=== PATIENT | female | born 1955 | race African-American/Black ===

== ENCOUNTER 2017-03-04 18:27 | Emergency (ER) | payer MEDICAID, MEDICARE, OTHER ==
[2017-03-04] MEDS ORDERED: Ondansetron ODT 4 MG TAB ONE ×2 (18:47→19:08)
[2017-03-04] MEDS ORDERED: AMOXicillin 250 MG CAP ONE (19:08)
== END 2017-03-04 19:14 | disposition home or self-care (01) ==
LOC: BURERS 18:27
DX: J20.9 Acute bronchitis, unspecified (principal); R11.2 Nausea with vomiting, unspecified; R19.7 Diarrhea, unspecified; E11.9 Type 2 diabetes mellitus without complications; G47.30 Sleep apnea, unspecified; E78.5 Hyperlipidemia, unspecified; I10 Essential (primary) hypertension; J45.909 Unspecified asthma, uncomplicated
CPT/HCPCS: 99283; Q0162

== ENCOUNTER 2017-05-23 17:15 | Emergency (ER) | payer MEDICARE ==
--- NOTE | 2017-05-23 21:33 | RAD ---
RIGHT FOOT THREE VIEWS: Date: 05-23-17 FINDINGS: No fracture or acute periosteal reaction was seen. There is a little periosteal irregularity of the s econd metatarsal shaft, but this is probably chronic. Some bony spurring is seen along the dorsum of some of the tarsal bones. A small calcaneal spur is present. There is dense ossification of the Achil les tendon at the insertion on the calcaneus. IMPRESSION: Chronic changes but no acute findings. POS: HOME
== END 2017-05-23 18:30 | disposition home or self-care (01) ==
LOC: BURERS 17:15
DX: M19.071 Primary osteoarthritis, right ankle and foot (principal); J06.9 Acute upper respiratory infection, unspecified; E11.9 Type 2 diabetes mellitus without complications; G47.30 Sleep apnea, unspecified; E78.5 Hyperlipidemia, unspecified; I10 Essential (primary) hypertension; J45.909 Unspecified asthma, uncomplicated

== ENCOUNTER 2017-10-21 19:52 | Emergency (ER) | payer MEDICARE ==
[2017-10-21 20:30] LABS: #Basophils 0.1 thou/uL (0.0-0.2); #Eosinphils 0.2 thou/uL (0.0-0.7); #Lymphocytes 3.5 thou/uL (1.20-3.40); #Monocytes 0.7 thou/uL (0.11-0.59); #Neutrophils 6.2 thou/uL (1.40-6.50); %Basophils 0.7 % (0.0-1.0); %Eosinophils 1.6 % (0.0-10.0); %Lymphocytes 32.9 % (21.0-51.0); %Monocytes 6.6 % (0.0-10.0); %Neutrophils 58.2 % (42.0-75.0); Hemoglobin 11.1 g/dL (12.0-16.0); Mean Corpuscular HGB CONC 36.1 g/dL (32.0-36.0); Mean Corpuscular Hemoglobin 28.7 pg (27.0-31.0); Mean Corpuscular Volume 79.6 fL (78.0-98.0); Mean Platelet Volume 5.6 fL (7.4-10.4); Platelet Count 195 thou/uL (130-400); Red Blood Cell (RBC) Count 3.86 mill/uL (4.20-5.40); White Blood Cell (WBC) Count 10.7 thou/uL (4.8-10.8)
[2017-10-21 20:47] LABS: ALT (SGPT) 12 U/L (8-55); AST (SGOT) 10 U/L (5-34); Albumin 4.4 g/dL (3.4-4.8); Alkaline Phosphatase 101 U/L (40-150); Anion Gap 16 mmol/L (10-20); BUN (Urea Nitrogen) 30 mg/dL (9.8-20.1); Bilirubin, Total 0.3 mg/dL (0.2-1.2); Calc. Creatinine Clearance 0 mL/min (70-130); Carbon Dioxide 27 mmol/L (23-31); Chloride 101 mmol/L (98-107); Estimated GFR-MDRD 30; Globulin 3.5 g/dL (2.4-3.5); Glucose 225 mg/dL (80-115); Protein, Total 7.9 g/dL (6.0-8.3); Sodium 140 mmol/L (136-145); Uric Acid 11.6 mg/dL (2.6-6.0)
[2017-10-21] MEDS ORDERED: HYDROcodone/Acetaminophen 5/325 mg Tablet ONE (21:01)
[2017-10-21] MEDS ORDERED: Amoxicillin/Potassium Clav 875 MG TAB ONE (21:01)
--- NOTE | 2017-10-21 22:22 | RAD ---
LEFT FOOT THREE VIEWS: 10/21/17 There is prominent soft tissue swelling, particularly on the dorsum of the forefoot. Nevertheless, n o underlying fractures were appreciated. The bony structures appear intact. Some arthritic changes cotto ggested in some of the intertarsal joints. There is dense bony ossification of the insertion of the A chilles tendon. A large calcaneal spur was seen and there is ossification of some of the attachments of the plantar muscles/fascia to the calcaneus. IMPRESSION: No acute bony changes. POS: HOME
== END 2017-10-21 21:22 | disposition home or self-care (01) ==
LOC: BURERS 19:52
DX: M10.9 Gout, unspecified (principal); L03.116 Cellulitis of left lower limb; E11.9 Type 2 diabetes mellitus without complications; E78.5 Hyperlipidemia, unspecified; I10 Essential (primary) hypertension; J45.909 Unspecified asthma, uncomplicated; G47.30 Sleep apnea, unspecified; Z85.6 Personal history of leukemia; Z79.899 Other long term (current) drug therapy
CPT/HCPCS: 36415; 80053; 84550; 85025

== ENCOUNTER 2017-12-11 00:02 | Emergency (ER) | payer MEDICARE ==
[2017-12-11] MEDS ORDERED: Morphine 10 MG/ML VIAL ONE (00:28)
[2017-12-11] MEDS ORDERED: Ibuprofen 200 MG TAB ONE (00:29)
[2017-12-11] MEDS ORDERED: Colchicine 0.6 MG TAB PO SCH ×2 (01:00→02:00)
== END 2017-12-11 01:18 | disposition home or self-care (01) ==
LOC: BURERS 00:02
DX: M19.072 Primary osteoarthritis, left ankle and foot (principal); M10.9 Gout, unspecified; E11.9 Type 2 diabetes mellitus without complications; G47.30 Sleep apnea, unspecified; E78.5 Hyperlipidemia, unspecified; I10 Essential (primary) hypertension; J45.909 Unspecified asthma, uncomplicated; Z79.899 Other long term (current) drug therapy
CPT/HCPCS: 96372; J2270

== ENCOUNTER → 2018-01-04 | Emergency (ER) | payer MEDICARE ==
[~2018-01-04] MED LIST: Fentanyl 100 MCG/2 ML VIAL ONE; Morphine 4 MG/ML Carpuject ONE; Ondansetron HCl/PF 4 MG/2 ML Vial ONE
[2018-01-04 08:56] LABS: #Basophils 0.1 thou/uL (0.0-0.2); #Eosinphils 0.1 thou/uL (0.0-0.7); #Lymphocytes 3.4 thou/uL (1.20-3.40); #Monocytes 0.5 thou/uL (0.11-0.59); %Basophils 0.9 % (0.0-1.0); %Eosinophils 0.6 % (0.0-10.0); %Lymphocytes 30.8 % (21.0-51.0); %Monocytes 4.5 % (0.0-10.0); %Neutrophils 63.3 % (42.0-75.0); Hemoglobin 11.3 g/dL (12.0-16.0); Mean Corpuscular HGB CONC 31.8 g/dL (32.0-36.0); Mean Corpuscular Hemoglobin 26.9 pg (27.0-31.0); Mean Corpuscular Volume 84.5 fL (78.0-98.0); Mean Platelet Volume 7.9 fL (7.4-10.4); Platelet Count 185 thou/uL (130-400); RBC Distribution Width 12.6 % (11.5-14.5); Red Blood Cell (RBC) Count 4.19 mill/uL (4.20-5.40)
[2018-01-04 09:11] LABS: ALT (SGPT) 17 U/L (8-55); AST (SGOT) 16 U/L (5-34); Albumin 4.3 g/dL (3.4-4.8); Alkaline Phosphatase 100 U/L (40-150); Anion Gap 13 mmol/L (10-20); BUN (Urea Nitrogen) 24 mg/dL (9.8-20.1); Bilirubin, Total 0.3 mg/dL (0.2-1.2); Calc. Creatinine Clearance 0 mL/min (70-130); Calcium 9.3 mg/dL (7.8-10.44); Carbon Dioxide 27 mmol/L (23-31); Chloride 105 mmol/L (98-107); Estimated GFR-MDRD 40; Globulin 3.2 g/dL (2.4-3.5); Glucose 174 mg/dL (80-115); Lipase 35 U/L (8-78); Potassium 4.2 mmol/L (3.5-5.1); Protein, Total 7.5 g/dL (6.0-8.3); Sodium 141 mmol/L (136-145)
[2018-01-04 09:12] LABS: CKMB 1.4 ng/mL (0-6.6); Troponin I Less than 0.010 ng/mL (< 0.028)
[2018-01-04 10:35] LABS: Bilirubin Negative (Negative); Blood, Urine Trace (Negative); Clarity Clear (Clear); Glucose, Urine (Dipstick) Negative (Negative); Leukocyte Negative (Negative); Nitrite Negative (Negative); Protein, Urine (Dipstick) Trace mg/dL (Neg-Trace); RBC/HPF None Seen HPF (0-3); Squamous Epithelial 0-3 HPF (0-3); Urobilinogen 0.2 mg/dL (0.2-1.0); WBC/HPF 0-3 HPF (0-3)
[2018-01-04 10:36] LABS: Bacteria/HPF 1+ HPF (None Seen); Crystals/HPF 1+ STARCH HPF (Negative)
--- NOTE | 2018-01-04 19:07 | CT ---
CT ABDOMEN AND PELVIS WITH CONTRAST: Date: 01-04-18 Comparison: 09-16-12 FINDINGS: Spiral CT of the abdomen and pelvis was performed for evaluation of abdominal pain with nausea and vo miting. The lung bases show some basilar atelectasis. The liver, spleen, gallbladder, pancreas, adrenal gland s, kidneys and abdominal aorta all show no acute findings. I would note that the amount of contrast g iven on this study was limited due to the patient's GFR. The major finding on this study is dilation of mid small bowel, up to 3 cm in width. The bowel prior to and after it are all normal in size. There is no colonic dilation. No inflammatory changes are see n around bowel. No free air free fluid was noted. Streaking is seen in the low midline abdominal soft tissues. Looking at a prior scan, there was a prior hernia repair here, so I am presuming that to be scarring rather than acute inflammatory change. CT of the pelvis showed no pelvic masses, fluid collections, or other acute changes. Degenerative emil nges are prominent in the spine. IMPRESSION: Moderate dilation of mid small bowel with a rather abrupt transition thereafter. The possibility of a t least a partial small bowel obstruction is raised. Given the patient's prior surgeries, adhesions a re certainly a possibility to be considered. Findings discussed with Dr. Galan at 1008 on 01-04-18. POS: HOME
== END ==
LOC: BURERS 08:29
DX: K56.609 Unspecified intestinal obstruction, unspecified as to partial versus complete obstruction (principal); I10 Essential (primary) hypertension; E11.9 Type 2 diabetes mellitus without complications; G47.30 Sleep apnea, unspecified; E78.5 Hyperlipidemia, unspecified; J45.909 Unspecified asthma, uncomplicated; E66.9 Obesity, unspecified; Z79.899 Other long term (current) drug therapy
CPT/HCPCS: 36416; 74177; 80053; 81003; 81015; 82553; 83690; 84484; 85025; 93005; 96361; 96374; 96375; J2270; J2405; J3010

== ENCOUNTER 2018-06-27 18:38 | Emergency (ER) | payer MEDICARE ==
[2018-06-27] MEDS ORDERED: Ketorolac Tromethamine 60 MG/2 ML VIAL ONE (18:56)
[2018-06-27] MEDS ORDERED: Cyclobenzaprine 10 MG TAB ONE (18:57)
[2018-06-27] MEDS ORDERED: Acetaminophen/Codeine 30-300mg Tablet ONE (18:57)
[2018-06-27 19:03] LABS: Bilirubin Negative (Negative); Clarity Clear (Clear); Glucose, Urine (Dipstick) Negative (Negative); Leukocyte Negative (Negative); Nitrite Negative (Negative); Protein, Urine (Dipstick) Negative (Neg-Trace); Urobilinogen 0.2 mg/dL (0.2-1.0)
[2018-06-27 19:04] LABS: Bacteria/HPF 1+ HPF (None Seen); Blood, Urine Trace (Negative); Crystals/HPF None Seen HPF (Negative); Hyaline Casts/LPF NONE SEEN LPF (0-3 Hyaline); Other Casts/LPF None Seen LPF (0-3 Hyaline); Oval Fat Bodies/HPF None Seen HPF (None Seen); RBC/HPF 0-3 HPF (0-3); Renal Epithelial None Seen HPF (0-3); Sperm/HPF None Seen HPF (None Seen); Squamous Epithelial 0-3 HPF (0-3); Transitional Epithelial NONE SEEN HPF (0-3); Trichomonas/HPF None Seen HPF (None Seen); WBC/HPF 0-3 HPF (0-3); Yeast-All Forms None Seen HPF (None Seen)
== END 2018-06-27 19:12 | disposition home or self-care (01) ==
LOC: BURERS 18:38
DX: M54.5 Low back pain (principal); I10 Essential (primary) hypertension; E66.9 Obesity, unspecified; G47.30 Sleep apnea, unspecified; E78.5 Hyperlipidemia, unspecified; E11.9 Type 2 diabetes mellitus without complications; Z79.01 Long term (current) use of anticoagulants; Z79.899 Other long term (current) drug therapy
CPT/HCPCS: 81003; 81015; 99284; J1885

== ENCOUNTER 2019-03-16 23:33 | Emergency (ER) | payer MEDICARE ==
[2019-03-16] MEDS ORDERED: Piperacillin/Tazobactam 4.5 GM VIAL ONE (23:57)
[2019-03-16] MEDS ORDERED: Sodium Chloride 0.9% 100 ML ONE (23:58)
[2019-03-17] MEDS ORDERED: Acetaminophen 500 MG TAB ONE (00:10)
[2019-03-17 01:11] LABS: ALT (SGPT) 12 U/L (8-55); AST (SGOT) 19 U/L (5-34); Albumin 3.6 g/dL (3.4-4.8); Alkaline Phosphatase 102 U/L (40-110); BUN (Urea Nitrogen) 13 mg/dL (9.8-20.1); Bilirubin, Total 0.6 mg/dL (0.2-1.2); Calc. Creatinine Clearance 0 mL/min (70-130); Estimated GFR-MDRD 60; Globulin 2.1 g/dL (2.4-3.5); Glucose 134 mg/dL (80-115); Protein, Total 5.7 g/dL (6.0-8.3)
[2019-03-17] MEDS ORDERED: Lorazepam 2 MG/ML VIAL ONE (01:20)
[2019-03-17 01:24] LABS: Chloride 105 mmol/L (98-107); Potassium 3.8 mmol/L (3.5-5.1); Sodium 139 mmol/L (136-145)
[2019-03-17 01:26] LABS: Anisocytosis MODERATE=16-30 cells (100X) (0-5/hpf); Band 5 % (5-11); Hemoglobin 7.5 g/dL (12.0-16.0); Hypochromia SLIGHT = 6-15 cells (100X) (0-5/hpf); Lymphocytes 82 % (21-51); MDiff Complete? YES; Mean Corpuscular HGB CONC 31.3 g/dL (32.0-36.0); Mean Corpuscular Hemoglobin 27.9 pg (27.0-31.0); Mean Corpuscular Volume 89.2 fL (78.0-98.0); Mean Platelet Volume 8.4 fL (7.4-10.4); Monocytes 3 % (0-10); Neutrophil 10 % (42-75); Platelet Count 79 thou/uL (130-400); Platelet Morphology Comment Appears Decreased; Red Blood Cell (RBC) Count 2.69 mill/uL (4.20-5.40)
[2019-03-17 01:27] LABS: Manual Diff?? YES
[2019-03-17 01:36] LABS: White Blood Cell (WBC) Count 30.5 thou/uL (4.8-10.8)
[2019-03-17 01:37] LABS: Carbon Dioxide 26 mmol/L (23-31)
[2019-03-17 01:48] LABS: Anion Gap 12 mmol/L (10-20)
--- NOTE | 2019-03-17 07:30 | CT ---
PRELIMINARY REPORT/[facility]/EMERGENCY AFTER HOURS PROCEDURE EXAM: CT Head Without Intravenous Contrast. CLINICAL HISTORY: FELL OUT BED FAMILY STATES AMS//NO PREV CT HEAD TECHNIQUE: Axial computed tomography images of the head/brain without intravenous contrast. COMPARISON:None provided. FINDINGS: BRAIN: No acute intraparenchymal hemorrhage. No mass lesion. No CT evidence for acute territorial inf arct. No midline shift or extra-axial collection. VENTRICLES: No hydrocephalus. ORBITS: The orbits are unremarkable. SINUSES AND MASTOIDS: The paranasal sinuses and mastoid air cells are clear. SOFT TISSUES: No significant facial or scalp soft tissue swelling evident. No radiopaque foreign body is seen. BONES: No acute skull fracture. IMPRESSION: No acute intracranial abnormality. ELECTRONICALLY SIGNED BY: Amandeep Joseph DO Mar 17, 2019 2:31:32 AM [employer] FINAL REPORT CT OF THE BRAIN WITHOUT CONTRAST: FINDINGS/IMPRESSION: I agree with the findings and impression given in the preliminary report per [facility]. No evidence of acute intracranial abnormality.
--- NOTE | 2019-03-17 07:44 | RAD ---
EXAM: Single view of the chest HISTORY: Cough and recent fall COMPARISON: 03/13/2019 FINDINGS: Single view of the chest shows an enlarged but stable cardiomediastinal silhouette. There i s no evidence of consolidation, mass, or pleural effusion. The bones are unremarkable. IMPRESSION: Cardiomegaly without evidence of acute cardiopulmonary disease
== END 2019-03-17 03:00 | disposition short-term general hospital (02) ==
LOC: BURERS 23:33
DX: R65.10 Systemic inflammatory response syndrome (SIRS) of non-infectious origin without acute organ dysfunction (principal); D64.9 Anemia, unspecified; R41.82 Altered mental status, unspecified; I10 Essential (primary) hypertension; E66.9 Obesity, unspecified; E11.9 Type 2 diabetes mellitus without complications; E78.5 Hyperlipidemia, unspecified; E78.00 Pure hypercholesterolemia, unspecified; Z79.01 Long term (current) use of anticoagulants; Z79.899 Other long term (current) drug therapy
CPT/HCPCS: 36415; 70450; 71045; 80053; 82140; 83605; 85025; 87040; 87077; 87149; 87186; 87804; 96365; 96367; 96375; A4353; J2060; J2543; J3370; J3490

== ENCOUNTER 2019-05-02 11:09 | Outpatient (CLI) | payer MEDICARE ==
--- NOTE | 2019-05-02 15:42 | RAD ---
CHEST 2 VIEWS: DATE: 05/02/2019. FINDINGS: Comparison is made with a 04/13/2019 study. There are increased lung markings in the right base medially. An infiltrate here is suspected. The left lung is relatively clear. The widening of the mediastinum is present as usual, presumably due t o adenopathy which is already known. There is no congestion or pleural effusion. IMPRESSION: 1. Probable right basilar pneumonia. 2. Wide mediastinum, stable. POS: HOME
== END 2019-05-02 11:10 | disposition home or self-care (01) ==
LOC: BURRAD 11:09
PROVIDERS: ATTEND Nurse Practitioner
DX: J45.41 Moderate persistent asthma with (acute) exacerbation (principal)
CPT/HCPCS: 71046

== ENCOUNTER 2020-01-25 10:46 | Emergency (ER) | payer MEDICARE | END 2020-01-25 11:47 | disposition home or self-care (01) | LOC: BURERS 10:46 | DX: S13.4XXA Sprain of ligaments of cervical spine, initial encounter (principal); S29.012A Strain of muscle and tendon of back wall of thorax, initial encounter; S16.1XXA Strain of muscle, fascia and tendon at neck level, initial encounter; I48.91 Unspecified atrial fibrillation; E11.9 Type 2 diabetes mellitus without complications; E78.5 Hyperlipidemia, unspecified; E78.00 Pure hypercholesterolemia, unspecified; I10 Essential (primary) hypertension; Z79.899 Other long term (current) drug therapy; V89.2XXA Person injured in unspecified motor-vehicle accident, traffic, initial encounter | CPT/HCPCS: 99283 ==

== ENCOUNTER 2021-10-03 16:19 | Emergency (ER) | payer MEDICARE ==
[2021-10-03] MEDS ORDERED: Morphine 10 MG/ML VIAL ONE (17:35)
== END 2021-10-03 17:50 | disposition home or self-care (01) ==
LOC: BURERS 16:19
DX: M54.42 Lumbago with sciatica, left side (principal); E11.9 Type 2 diabetes mellitus without complications; E78.5 Hyperlipidemia, unspecified; Z79.899 Other long term (current) drug therapy
CPT/HCPCS: 96372; J2270

== ENCOUNTER 2021-11-30 10:05 | Emergency (ER) | payer MEDICARE ==
[2021-11-30 11:03] LABS: Mean Corpuscular HGB CONC 30.8 g/dL (32.0-36.0); Mean Corpuscular Hemoglobin 29.8 pg (27.0-31.0); Mean Corpuscular Volume 96.7 fL (78.0-98.0); Mean Platelet Volume 12.1 fL (7.4-10.4); Platelet Count 97 thou/uL (130-400); Red Blood Cell (RBC) Count 4.01 mill/uL (4.20-5.40); White Blood Cell (WBC) Count 51.1 thou/uL (4.8-10.8)
[2021-11-30 11:13] LABS: ALT (SGPT) Less than 7 U/L (8-55); AST (SGOT) 14 U/L (5-34); Albumin 4.1 g/dL (3.4-4.8); Alkaline Phosphatase 75 U/L (40-110); Anion Gap 19 mmol/L (10-20); BUN (Urea Nitrogen) 29 mg/dL (9.8-20.1); Bilirubin, Total 0.6 mg/dL (0.2-1.2); CK (CPK) 39 U/L (29-168); Calc. Creatinine Clearance 0 mL/min (70-130); Carbon Dioxide 22 mmol/L (23-31); Chloride 122 mmol/L (98-107); Estimated GFR 45; Globulin 2.8 g/dL (2.4-3.5); Glucose 146 mg/dL (80-115); Potassium 4.3 mmol/L (3.5-5.1); Protein, Total 6.9 g/dL (5.8-8.1); Sodium 159 mmol/L (136-145)
[2021-11-30] MEDS ORDERED: Ketorolac Tromethamine 30 MG/ML VIAL ONE (11:16)
[2021-11-30 11:49] LABS: SARS-CoV-2 NAA Rapid Test DETECTED (NotDetected)
[2021-11-30 12:14] LABS: Band 2 % (5-11); Differential Comment Immature Cell(s); Lymphocytes 75 % (21-51); MDiff Complete? YES; Monocytes 1 % (0-10); Neutrophil 4 % (42-75); Platelet Morphology Comment Appears Decreased; Reflex for Review?? YES
[2021-11-30] MEDS ORDERED: Acetaminophen 500 MG TAB ONE ×2 (15:04→15:05)
[2021-11-30 15:09] LABS: Anion Gap 17 mmol/L (10-20); BUN (Urea Nitrogen) 30 mg/dL (9.8-20.1); Calc. Creatinine Clearance 0 mL/min (70-130); Calcium 8.6 mg/dL (7.8-10.44); Carbon Dioxide 22 mmol/L (23-31); Chloride 123 mmol/L (98-107); Estimated GFR 41; Glucose 123 mg/dL (80-115); Potassium 4.3 mmol/L (3.5-5.1); Sodium 158 mmol/L (136-145)
[2021-11-30 17:49] LABS: Bilirubin Small (Negative); Blood, Urine Negative (Negative); Clarity Cloudy (Clear); Glucose, Urine (Dipstick) Negative (Negative); Ketone, Urine Trace mg/dL (Negative); Leukocyte Negative (Negative); Nitrite Negative (Negative); Protein, Urine (Dipstick) 100 mg/dL (Neg-Trace)
[2021-11-30 17:55] LABS: Bacteria/HPF 3+ HPF (None Seen); RBC/HPF 0-3 HPF (0-3); Squamous Epithelial 0-3 HPF (0-3); WBC/HPF 0-3 HPF (0-3)
== END 2021-11-30 18:06 | disposition short-term general hospital (02) ==
LOC: BURERS 10:05
DX: U07.1 COVID-19 (principal); C91.10 Chronic lymphocytic leukemia of B-cell type not having achieved remission; E87.0 Hyperosmolality and hypernatremia; R91.8 Other nonspecific abnormal finding of lung field; I48.91 Unspecified atrial fibrillation; E11.9 Type 2 diabetes mellitus without complications; E78.5 Hyperlipidemia, unspecified; I10 Essential (primary) hypertension; J44.9 Chronic obstructive pulmonary disease, unspecified; Z79.899 Other long term (current) drug therapy
CPT/HCPCS: 70450; 71045; 80048; 80053; 82550; 83605; 83880; 84484; 85025; 87040; 87086; 93005; 94760; 96361; 96374; 99285; U0002; 36415; 81003; 81015; 85060; J1885

== ENCOUNTER 2022-01-01 22:52 | Emergency (ER) | payer MEDICARE ==
[2022-01-01 23:58] LABS: ALT (SGPT) Less than 7 U/L (8-55); AST (SGOT) 10 U/L (5-34); Albumin 3.4 g/dL (3.4-4.8); Alkaline Phosphatase 70 U/L (40-110); Anion Gap 15 mmol/L (10-20); BUN (Urea Nitrogen) 28 mg/dL (9.8-20.1); Bilirubin, Total 0.8 mg/dL (0.2-1.2); Calc. Creatinine Clearance 0 mL/min (70-130); Carbon Dioxide 24 mmol/L (23-31); Chloride 104 mmol/L (98-107); Estimated GFR 15; Globulin 1.9 g/dL (2.4-3.5); Glucose 100 mg/dL (80-115); Potassium 4.8 mmol/L (3.5-5.1); Protein, Total 5.3 g/dL (5.8-8.1); Sodium 138 mmol/L (136-145)
[2022-01-02 00:01] LABS: Hemoglobin 8.5 g/dL (12.0-16.0); Mean Corpuscular HGB CONC 30.8 g/dL (32.0-36.0); Mean Corpuscular Hemoglobin 29.7 pg (27.0-31.0); Mean Corpuscular Volume 96.3 fL (78.0-98.0); Platelet Count 146 thou/uL (130-400); RBC Distribution Width 15.9 % (11.5-14.5); Red Blood Cell (RBC) Count 2.88 mill/uL (4.20-5.40); White Blood Cell (WBC) Count 31.5 thou/uL (4.8-10.8)
[2022-01-02 00:42] LABS: Lymphocytes 78 % (21-51); MDiff Complete? YES; Monocytes 9 % (0-10); Neutrophil 12 % (42-75)
[2022-01-02] MEDS ORDERED: traMADol HCl 50 MG TAB ONE (01:01)
== END 2022-01-02 04:34 | disposition short-term general hospital (02) ==
LOC: BURERS 22:52
DX: N17.9 Acute kidney failure, unspecified (principal); I48.91 Unspecified atrial fibrillation; E78.00 Pure hypercholesterolemia, unspecified; E11.9 Type 2 diabetes mellitus without complications; J45.909 Unspecified asthma, uncomplicated; Z79.899 Other long term (current) drug therapy
CPT/HCPCS: 71045; 80053; 83880; 84484; 85025; 93005